=== PATIENT | female | born 1955 | race Caucasian/White ===

== ENCOUNTER 2021-02-20 09:29 | Outpatient (CLI) | payer MEDICARE, OTHER | END 2021-02-20 09:30 | disposition home or self-care (01) | LOC: CSHCT 09:29 | PROVIDERS: ATTEND Internal Medicine Gastroenterology | DX: R10.13 Epigastric pain (principal); R10.33 Periumbilical pain; K59.09 Other constipation | CPT/HCPCS: 74177 ==